=== PATIENT | female | born 1995 | race Caucasian/White ===

== ENCOUNTER 2020-10-23 12:30 | Emergency (ER) | payer MEDICAID ==
[~2020-10-23] VITALS: Ht 162.6 cm; Wt 78.0 kg
[2020-10-23 12:37] VITALS: BP 136/88; Ht 162.6 cm; Wt 78.0 kg
== END 2020-10-23 14:23 | disposition home or self-care (01) ==
LOC: ED 12:30
DX: S81.012A Laceration without foreign body, left knee, initial encounter (principal); W18.30XA Fall on same level, unspecified, initial encounter; Y93.89 Activity, other specified; Y92.89 Other specified places as the place of occurrence of the external cause; Y99.8 Other external cause status
CPT/HCPCS: 90715; J2001